=== PATIENT | female | born 1990 ===

== ENCOUNTER 2022-06-03 22:17 | Inpatient (IN) ==
[2022-06-03] MEDS ORDERED: METHYLERGONOVINE MALEATE 0.2 MG/ML AMP IM PRN (22:36)
[2022-06-03] MEDS ORDERED: LACTATED RINGER'S 1,000 ML IV PRN (22:36)
[2022-06-03] MEDS ORDERED: LIDOCAINE 1% LOCAL 20 ML VIAL INFIL PRN (22:36)
[2022-06-03] MEDS ORDERED: OXYTOCIN 30 UNITS/500 ML BAG IV PRN (22:36)
[2022-06-03 22:54] LABS: Hematocrit (blood only) 37.1 % (34.1-44.9); Hemoglobin 12.6 g/dl (12.0-16.0); Mean Corpuscular Hemoglobin 31.3 pg (25.0-34.0); Mean Corpuscular Volume 92.1 fL (80.0-100.0); Mean Platelet Volume 11.8 fL (9.4-12.3); Platelet Count 209 K/uL (130-400); RDW Coefficient of Variation 12.9 % (11.5-14.5); Red Blood Count 4.03 M/uL (3.93-5.22); White Blood Count 14.38 K/ul (4.8-10.8)
[2022-06-04] MEDS ORDERED: oxyCODONE/ACETAMINOPHEN 5mg/325mg TAB PO PRN (01:36)
[2022-06-04] MEDS ORDERED: HYDROCORTISONE ACETATE 25 MG SUPP PR PRN (01:36)
[2022-06-04] MEDS ORDERED: BENZOCAINE 20% AER SPR 82.5 GM CAN EXT PRN (01:36)
[2022-06-04] MEDS ORDERED: ACETAMINOPHEN 325 MG TAB PO PRN (01:36)
[2022-06-04] MEDS ORDERED: ACETAMINOPHEN W/CODEINE #3 1 TAB PO PRN (01:36)
[2022-06-04] MEDS ORDERED: DIPHTHERIA/TETANUS/PERTUSSIS 0.5 ML SYR/VIAL IM ONE (01:36)
[2022-06-04] MEDS ORDERED: OXYTOCIN 30 UNITS/500 ML BAG IV PRN (01:36)
[2022-06-04] MEDS: IBUPROFEN 600 MG TAB PO PRN ×4 (01:53→19:55)
[2022-06-04] MEDS: DOCUSATE SODIUM 100 MG CAP PO SCH ×2 (08:48→19:55)
[2022-06-04] MEDS: PRENATAL VITAMIN 1 TAB PO SCH (08:48)
--- NOTE | 2022-06-04 13:31 | Operative Report (OR) ---
DELIVERY NOTE The patient is a 2, para 2, blood type is A positive, group B strep negative, was admitted in active labor at 40 weeks 3 days. She ruptured her membranes earlier in the afternoon, called about 9:00, was having regular contractions. She had an unstimulated unmedicated labor, went to full dilat ation and in a short period of time of about 20 minutes, pushed out a live female via JALEN posi tion over an intact perineum. Infant was suctioned through the mouth and the nose. Shoulders were d elivered without difficulty. Cord was allowed to pulse for 1 minute, then clamped, cut by the father . Cord blood was taken. The placenta was removed intact without difficulty. There was a little mec onium noted. Uterus contracted nicely. Hemostasis was good. There was a very superficial perineal laceration at 6 o'clock, it was infiltrated with local and repaired with a running 2-0 Vicryl. Job ID: [id number]
[2022-06-05] MEDS: IBUPROFEN 600 MG TAB PO PRN ×2 (00:13→09:28)
[2022-06-05 07:57] LABS: Hemoglobin 13.2 g/dl (12.0-16.0); Mean Corpuscular Hemoglobin 31.6 pg (25.0-34.0); Mean Corpuscular Hgb Conc 33.8 g/dL (32.0-36.0); Mean Corpuscular Volume 93.3 fL (80.0-100.0); Mean Platelet Volume 11.8 fL (9.4-12.3); Platelet Count 181 K/uL (130-400); RDW Coefficient of Variation 13.2 % (11.5-14.5); RDW Standard Deviation 45.1 fL (36.4-46.3); Red Blood Count 4.18 M/uL (3.93-5.22); White Blood Count 13.65 K/ul (4.8-10.8)
--- NOTE | 2022-06-05 09:25 | Obstetrical Progress Note ---
Date of Service June 05, 2022 Assessment & Plan Admission and Anticipated Discharge Date Admission Date: June 03, 2022 Subjective abdomen soft and non tender no calf tenderness ambulating well vaginal bleeding scant hgb 13.2 Results & Data ([facility]) Vital Signs (Past 12 Hours) Vital Signs Temp Pulse Resp BP O2 Del Method 06/04/22 23:45 36.5 C 47 L 16 106/65 Room Air
[2022-06-05] MEDS: PRENATAL VITAMIN 1 TAB PO SCH (09:28)
[2022-06-05] MEDS: DOCUSATE SODIUM 100 MG CAP PO SCH (09:28)
[2022-06-05] MEDS ORDERED: bisacodyL 5 MG TABEC PO SCH (20:00)
[2022-06-06] MEDS ORDERED: bisacodyL 10 MG SUPP PR PRN (01:36)
== END 2022-06-05 12:45 | disposition home or self-care (01) | DRG 807 ==
LOC: OPB 22:17 → 4S1 22:20 → 4E2 06-04 04:04